=== PATIENT | male | born 1950 | race Caucasian/White ===

== ENCOUNTER → 2022-08-12 13:50 | Outpatient (CLI) | payer MEDICARE, OTHER, SELFPAY ==
--- NOTE | 2022-08-12 13:56 | DI.MRI.S_ITS ---
PROCEDURE: MR ANKLE LT WO CON INDICATIONS: Left Achilles Tendonitis TECHNIQUE: Noncontrast sagittal T1 spin echo and T2 fast spin echo with fat saturation, axial proton density fast spin echo and T2 fast spin echo with fat saturation, coronal T1 spin echo and T2 fast spin echo with fat saturation through the ankle/hindfoot. COMPARISON: [facility], CR, XR ANKLE 1 OR 2 VIEWS LEFT, 07/26/2022, 14:01. FINDINGS: Image quality: Excellent. Bones and joints: No bone marrow contusions or fractures. No hindfoot coalitions. No osteochondral injuries of the talar dome. Mild degenerative spurring of the dorsal talonavicular joint. There is diffuse subcutaneous soft tissue edema surrounding the ankle. Medial structures: The deep and superficial layers of the deltoid ligament appear intact. The spring ligament components are intact. Mild posterior tibialis tenosynovitis. The flexor digitorum longus and flexor hallucis longus tendons are intact. The posterior tibial neurovascular bundle appears normal within the tarsal tunnel, without extrinsic mass effect. Lateral structures: Remote prior low-grade sprains of the anterior talofibular ligament and calcaneofibular ligament. The posterior talofibular ligament is intact. The anterior and posterior tibiofibular ligaments appear intact. There is mild tendinosis and tenosynovitis of the peroneus brevis and longus tendons. The sinus tarsi demonstrates normal fatty signal. Anterior structures: The tibialis anterior, extensor hallucis longus, and extensor digitorum longus tendons appear intact. The dorsal talonavicular ligament appears mildly thickened and intermediate signal intensity, consistent with prior sprain. Posterior and plantar structures: There is marked thickening of the midportion of the Achilles tendon with internal fluid signal intensity approximately 6 cm from the distal insertion, consistent with partial tearing. The tear involves approximately one third of the cross-sectional area of the tendon. Medial and lateral bands of the plantar fascia are of normal thickness. No abductor digiti quinti muscle atrophy to suggest Byrnes neuropathy. IMPRESSION: 1. Partial intrasubstance tearing of the midportion of the Achilles tendon involving approximately 1/3 of the cross-sectional area of the tendon centrally. 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 2. Mild peroneus brevis and longus tendinosis and tenosynovitis. 3. Remote prior low-grade sprains of the anterior talofibular ligament and calcaneofibular ligament. 4. Mild distal posterior tibialis tenosynovitis. 5. Remote prior sprain of the dorsal talonavicular ligament. Approved by: Sam Bah M.D. on 08/14/2022 at 9:16
== END ==
PROVIDERS: Referring Provider Orthopaedic Surgery Foot and Ankle Surgery; Visit Provider Orthopaedic Surgery Foot and Ankle Surgery
DX: S86.012A Strain of left Achilles tendon, initial encounter (principal); M65.862 Other synovitis and tenosynovitis, left lower leg; M67.874 Other specified disorders of tendon, left ankle and foot
CPT/HCPCS: 73721